=== PATIENT | female | born 1990 | race Caucasian/White ===

== ENCOUNTER 2022-03-31 08:12 | Outpatient (CLI) | payer OTHER, SELFPAY ==
--- NOTE | 2022-03-31 08:15 | CRLHL7_ITS ---
For Patients: As a result of the Century Cures Act, medical imaging exams and procedure reports are released immediately into your electronic medical record. You may view this report before your referring provider. If you have questions, please contact your health care provider. CLINICAL HISTORY: Abdominal pain COMPARISON: none TECHNIQUE: Real time sofia scale imaging and color Doppler analysis was performed of the abdomen. FINDINGS: Sonographic imaging demonstrates normal size and uniform echotexture of the liver. The spleen is of normal size. The pancreas appears normal. The proximal abdominal aorta and IVC appear normal. There is no evidence of ascites. The gallbladder is incompletely distended and there is no evidence of stones within the gallbladder lumen. The gallbladder wall measures 2 mm in thickness. The common bile duct measures 3 mm in size within the gerardo hepatis. The kidneys appear symmetric. The right kidney measures 13.4 cm in length and the left kidney measures 13.0 cm. There is no evidence of a renal calculus or hydronephrosis. IMPRESSION: Mildly contracted gallbladder. No gallstones. Consider gallbladder disease in the appropriate setting. HIDA scan may be useful. Remainder normal. Dictated by Sanjay Dia MD @ 03/31/2022 10:02:03 AM (Electronically Signed)
== END 2022-03-31 08:13 | disposition home or self-care (01) ==
PROVIDERS: PCP Family Medicine; Visit Provider Family Medicine
DX: R10.9 Unspecified abdominal pain (principal)
CPT/HCPCS: 76700

== ENCOUNTER 2022-04-08 07:55 | Outpatient (CLI) | payer OTHER, SELFPAY ==
--- NOTE | 2022-04-08 08:00 | CRLHL7_ITS ---
For Patients: As a result of the 21st Century Cures Act, medical imaging exams and procedure reports are released immediately into your electronic medical record. You may view this report before your referring provider. If you have questions, please contact your health care provider. HISTORY: 31-year-old female. Epigastric pain. TECHNIQUE: 5.22 millicuries of [id number] was injected intravenously. Images of the liver, gallbladder and abdomen were obtained in the anterior projection for 50 minutes. 1.2 mcg CCK was then administered intravenously and imaging was continued for an additional 30 minutes. FINDINGS: There is good uptake of activity by the hepatocytes. There is visualization of the biliary tree, gallbladder and small bowel. In response to CCK administration, there was a normal gallbladder ejection fraction of 64 percent by 30 minutes. IMPRESSION: 1. There is no evidence of acute or chronic cholecystitis. 2. Normal gallbladder ejection fraction of 64 percent. Dictated by Kameron Reardon MD @ 04/08/2022 10:25:26 AM (Electronically Signed)
== END 2022-04-08 07:56 | disposition home or self-care (01) ==
LOC: NM 07:56
PROVIDERS: PCP Family Medicine; Visit Provider Family Medicine
DX: R10.13 Epigastric pain (principal)
CPT/HCPCS: 78227; A9537

== ENCOUNTER 2023-01-29 18:16 | Day surgery (SDC) | payer OTHER, SELFPAY ==
[2023-01-29 18:38] VITALS: BP 107/70; PULSE 94; RESP 18; TEMP 37.1; O2SAT 97; BMI 19.6
--- NOTE | 2023-01-29 19:22 | CRLHL7_ITS ---
For Patients: As a result of the Century Cures Act, medical imaging exams and procedure reports are released immediately into your electronic medical record. You may view this report before your referring provider. If you have questions, please contact your health care provider. INDICATION: Right upper quadrant abdominal pain. The patient is . TECHNIQUE: Right upper quadrant ultrasound. COMPARISON: Complete abdomen ultrasound March 31, 2022. Correlation is made with a HIDA scan April 08, 2022. FINDINGS: Minimal sludge or debris within the gallbladder. No sonographic May`s sign. Normal gallbladder wall of 2.2 mm. Normal extrahepatic common bile duct of 3 mm. The pancreas and liver are within normal limits. No hydronephrosis of the right kidney which measures 14.4 x 3.5 x 6.9 cm. IMPRESSION: Minimal sludge in the gallbladder. The examination is otherwise negative. Dictated by Salbador Mancilla MD @ 01/29/2023 9:32:26 PM (Electronically Signed)
--- NOTE | 2023-01-29 20:30 | ED_ITS ---
HPI - General Adult General Chief complaint: Abdominal Pain Stated complaint: gall bladder pain Time Seen by Provider: 01/29/23 19:55 Source: patient Mode of arrival: ambulatory Limitations: no limitations History of Present Illness HPI narrative: 32-year-old female presenting today with right upper quadrant abdominal pain. Patient states that she has a long history of gallbladder dysfunction. States that it gets worse during her pregnancies but in the last 3 days he it has been worse than usual. She complains of a sharp right upper quadrant pain that feels like a spasm that comes and lingers for several hours. Always worse after she eats so she has eaten very little over the last 3 days. She had chills yesterday but no fevers that she is aware of. She had diarrhea today, no blood. She denies any dysuria, increased frequency or urinary urgency. [place] slightly nauseated. No vomiting. Of note, it appears that the patient had a right upper quadrant abdominal ultrasound in March of 2022 which showed a contracted gallbladder, HIDA scan at that time was normal. Related Data Home Medications Medication Instructions Recorded Confirmed norethindrone (contraceptive) 0.35 0.35 mg PO QDAY 03/29/22 03/29/22 mg tablet Allergies Allergy/AdvReac Type Severity Reaction Status Date / Time Shellfish Allergy Allergy Unknown Swelling Uncoded 03/29/22 10:45 of Lip/Tongue/Throat Review of Systems Status of ROS: Reports: 10 or more systems reviewed and unremarkable except as noted in History and below [facility] Medical History Twin ?O30.009 - Twin , unspecified number of placenta and unspecified number of amniotic sacs, unspecified trimester (ICD-10) Surgical History History of loop electrosurgical excision procedure (LEEP) of cervix (2017) ?Z98.890 - Other specified postprocedural states (ICD-10) Social History Narrative: ([employer] medical affairs manager), 3 kids, non-smoker Smoking Status: Never smoker Non-prescribed substance use: denies use Little interest or pleasure in doing things: not at all Feeling down, depressed, or hopeless: not at all Exam Narrative: Exam Narrative: Well-nourished well-developed patient in no acute distress. Alert and oriented. Answers questions appropriately. Mood and affect are appropriate. Thoughts are goal oriented and rational. No tangential or magical thinking noted. Patient speaks in full sentences without needing to catch her breath. HEENT: Normocephalic atraumatic. Pupils are equally round reactive to light. Extraocular muscles are intact. Conjunctivae are moist without any icterus noted. Moist mucous membranes. Neck is soft without any lymphadenopathy or thyromegaly. No masses are appreciated. Cardiovascular: Heart is regular rate and rhythm S1 and S2 are present without any murmurs. Lungs: Clear to auscultation bilaterally no wheezes rhonchi or rales are appreciated. Patient takes deep breaths without any discomfort. Abdomen: Soft and nondistended with normal bowel sounds. No guarding or rebound. No masses or organomegaly appreciated. She does have right upper quadrant tenderness, negative May sign. Extremities: Bilateral lower extremities are without edema. Skin: Well perfused without any obvious rashes. Const: Vital Signs, click to edit/add: Vital Signs - 24 hr 01/29/23 18:38 Temperature 98.8 F Pulse Rate [Pulse Oximeter] 94 Respiratory Rate 18 Blood Pressure [Ri ght Upper Arm] 107/70 Pulse Oximetry 97 Oxygen Delivery Me thod Room Air Course Course ED Course: IV established and patient was started on normal saline. Labs were drawn: CBC was unremarkable. Normal lactate. Chemistries and LFTs unremarkable. Right upper quadrant ultrasound shows minimal sludge in the gallbladder. Discussed patient with - she recommends cholecystectomy in the morning. Therefore patient will be discharged home at this time. She will be given hydrocodone and she will return in the morning for surgery per Dr. Farmer. Vital Signs Vital signs: Initial Vital Signs Temperature 98.8 F 01/29/23 18:38 Temperature Source Temporal Artery Scan 01/29/23 18:38 Pulse Rate 94 01/29/23 18:38 Respiratory Rate 18 01/29/23 18:38 Blood Pressure 107/70 01/29/23 18:38 Blood Pressure Mean 82 01/29/23 18:38 Blood Pressure Position Supine 01/29/23 18:38 Pulse Oximetry 97 01/29/23 18:38 Oxygen Delivery Method Room Air 01/29/23 18:38 Vital Signs Temperature 98.8 F 01/29/23 18:38 Pulse Rate 94 01/29/23 18:38 Respiratory Rate 18 01/29/23 18:38 Blood Pressure 107/70 01/29/23 18:38 Pulse Oximetry 97 01/29/23 18:38 Oxygen Delivery Method Room Air 01/29/23 18:38 Temperature 98.8 F 01/29/23 18:38 Pulse Rate 94 01/29/23 18:38 Respiratory Rate 18 01/29/23 18:38 Blood Pressure 107/70 01/29/23 18:38 Pulse Oximetry 97 01/29/23 18:38 Oxygen Delivery Method Room Air 01/29/23 18:38 Medical Decision Making MDM Narrative Medical decision making narrative: 32-year-old female with abdominal pain. Pain consistent with biliary colic. Plan per above Medical Records Medical records reviewed: Yes I reviewed the patient's medical records Lab Data Lab results reviewed: Yes I reviewed the patient's lab results Labs: Lab Results 01/29/23 Range/Units 21:02 WBC 8.07 (4.50-11.00) K/uL RBC 4.73 (4.00-5.20) m/uL Hgb 13.5 (12.0-16.0) gm/dL Hct 42.1 (33.0-51.0) % MCV 89 (80-100) fL MCH 29 (26-34) pg MCHC 32 (32-36) gm/dL RDW Coeff of Forrest 12.9 (11.5-15.5) % Plt Count 192 (140-440) K/uL Neut % (Auto) 77.6 H (42.0-72.0) % Lymph % (Auto) 12.5 L (20-44) % [place] % (Auto) 9.4 (0.0-11.0) % Eos % (Auto) 0.2 (0.0-7.0) % Baso % (Auto) 0.2 (0.0-3.0) % Neut # (Auto) 6.30 (1.7-7.0) K/uL Lymph # (Auto) 1.00 (0.90-2.90) K/uL [place] # (Auto) 0.80 (0.00-0.90) K/UL Eos # (Auto) 0.02 (0.00-0.50) K/uL Baso # (Auto) 0.02 (0.00-0.30) K/uL Abs Immat Gran (auto) 0.01 (0.00-0.30) K/uL Imm/Tot Granulo (auto) 0.1 % Sodium 135 (135-149) mmol/L Potassium 3.7 (3.6-5.1) mmol/L Chloride 97 (96-114) mmol/L Carbon Dioxide 28 (20-32) mmol/L Anion Gap 10 (7-15) mEq/L BUN 7 (5-24) mg/dL Creatinine 0.5 (0.5-1.5) mg/dL Estimated Creat Clear 144.58 Estimated GFR 128 ml/min Glucose 95 (60-115) mg/dL Lactate 0.8 (0.5-1.9) mmol/L Calcium 9.0 (8.4-10.6) mg/dL Total Bilirubin 0.4 (0.1-1.5) mg/dL Direct Bilirubin 0.0 (0.0-0.5) mg/dL AST 36 H (12-35) U/L ALT 18 (4-35) U/L Alkaline Phosphatase 59 (40-150) U/L C-Reactive Protein 19.8 H (0.5-1.0) mg/dL Total Protein 8.2 (6.0-8.3) g/dL Albumin 4.5 (3.3-5.0) g/dL Lipase 142 (23-300) U/L Imaging Data US - abdomen: Attestation: I have reviewed the pertinent imaging results. Radiologist's impression: Right upper quadrant ultrasound. COMPARISON: Complete abdomen ultrasound March 31, 2022. Correlation is made with a HIDA scan April 08, 2022. FINDINGS: Minimal sludge or debris within the gallbladder. No sonographic May`s sign. Normal gallbladder wall of 2.2 mm. Normal extrahepatic common bile duct of 3 mm. The pancreas and liver are within normal limits. No hydronephrosis of the right kidney which measures 14.4 x 3.5 x 6.9 cm. IMPRESSION: Minimal sludge in the gallbladder. The examination is otherwise negative. Discharge Plan Discharge Clinical Impression: Abdominal pain, Biliary colic Patient Disposition: Home, Self-Care Condition: Stable Additional Instructions: Take pain medications tonight as needed/as prescribed. Return in the morning per Dr. Farmer's instructions. Pain medications sent to [facility]. Prescriptions: No Action norethindrone (contraceptive) 0.35 mg tablet 0.35 mg PO QDAY Patient Comments: TAKE 1 TABLET BY MOUTH EVERY DAY Follow Up/Referrals: Sanjay Sagluero MD [Primary Care Provider] - Stand Alone Forms: [employer] Info Instructions
[2023-01-29 21:06] LABS: Lactate* 0.8 mmol/L (0.5-1.9)
[2023-01-29] MEDS: 0.9 % SODIUM CHLORIDE 1000 ml 1,000 ML IV (21:12)
[2023-01-29 21:21] LABS: Basophils Absolute Auto 0.02 K/uL (0.00-0.30); Basophils Percent Auto 0.2 % (0.0-3.0); Eosinophils Absolute Auto 0.02 K/uL (0.00-0.50); Eosinophils Percent Auto 0.2 % (0.0-7.0); Hematocrit 42.1 % (33.0-51.0); Hemoglobin* 13.5 gm/dL (12.0-16.0); Immature Granulocytes Abs Auto 0.01 K/uL (0.00-0.30); Immature Granulocytes Pct Auto 0.1 %; Lymphocytes Percent Auto 12.5 % (20-44); Mean Corpuscular HGB Conc 32 gm/dL (32-36); Mean Corpuscular Hemoglobin 29 pg (26-34); Mean Corpuscular Volume 89 fL (80-100); Monocytes Percent Auto 9.4 % (0.0-11.0); Neutrophils Percent Auto 77.6 % (42.0-72.0); Platelet Count* 192 K/uL (140-440); RDW Coefficient of Variation % 12.9 % (11.5-15.5); Red Blood Count 4.73 m/uL (4.00-5.20); White Blood Count* 8.07 K/uL (4.50-11.00)
[2023-01-29 21:22] LABS: Slide Review Reflex No
[2023-01-29 22:04] LABS: Albumin* 4.5 g/dL (3.3-5.0); Chloride* 97 mmol/L (96-114); Sodium* 135 mmol/L (135-149)
[2023-01-29 22:05] LABS: Potassium* 3.7 mmol/L (3.6-5.1)
[2023-01-29 22:07] LABS: Anion Gap 10 mEq/L (7-15); Aspartate Amino Transferase* 36 U/L (12-35); Bilirubin Total* 0.4 mg/dL (0.1-1.5); Carbon Dioxide* 28 mmol/L (20-32); Creatinine* 0.5 mg/dL (0.5-1.5); Est. Creatinine Clearance* 144.58; Estimated Glomerular Filt Rate 128 ml/min
[2023-01-29 22:08] LABS: Alanine Aminotransferase* 18 U/L (4-35); Alkaline Phosphatase* 59 U/L (40-150); Blood Urea Nitrogen* 7 mg/dL (5-24); Glucose* 95 mg/dL (60-115); Lipase* 142 U/L (23-300); Total Protein* 8.2 g/dL (6.0-8.3)
[2023-01-29 22:24] LABS: C Reactive Protein* 19.8 mg/dL (0.5-1.0)
[2023-01-29] MEDS: HYDROCODONE-ACETAMIN 5-325 MG 1 TAB 2 TAB PO (22:39)
[2023-01-29 22:58] LABS: Ur HCG Qualitative* Negative (Negative)
[2023-01-30] VITALS (16 sets, daily range): BP systolic 96–110; BP diastolic 58–71; PULSE 60–78; RESP 12–18; TEMP 36.6–37.2; O2SAT 93–98
--- NOTE | 2023-01-30 09:08 | PM.GSCN ---
History of Present Illness Consult details Date Seen: 01/30/23 Consult date: 01/30/23 Narrative: Patient is an otherwise healthy 32-year-old female who presented to the emergency department last night 3 days of persistent epigastric abdominal pain. She states that she has had pain similar to this on and off for the last 3 years. During her last it was particularly painful. It workup was done during that which showed an abdominal ultrasound with no stones and normal HIDA scan. She does report some associated nausea, no emesis. Has been having some mild diarrhea. [place] alternating hot and cold at home, but has not taken her temperature. She is getting over a cold which she got from her kids. She does report radiation of the pain towards her right side and back. Lying still makes the pain better, moving makes the pain worse. Her abdominal surgical history is positive for a . She does report some nausea with anesthesia. Review of Systems Status of ROS: Reports: 10 or more systems reviewed and unremarkable except as noted in History and below PFSH [facility] Medical History Twin ?O30.009 - Twin , unspecified number of placenta and unspecified number of amniotic sacs, unspecified trimester (ICD-10) Surgical History History of loop electrosurgical excision procedure (LEEP) of cervix (2017) ?Z98.890 - Other specified postprocedural states (ICD-10) Social History Narrative: ([employer] military police officer), 3 kids, non-smoker What is your current living situation?: I presently have a place to live Problems where you live: no known problems Problems where you live details: na In the past 12 months, utilities in danger of being shut off: no In past 12 months, lack of transportation kept you from medical appts, meetings, work, or getting things needed for daily living: no In the past 12 mos, have been you worried that your food would run out before you had money to buy more?: never true In the past 12 mos, the food you bought just didn't last and you didn't have money to buy more?: never true Highest level of school completed/degree received: Master's degree Smoking Status: Never smoker How often do you have a drink containing alcohol: 2-4 times a month Alcohol type: wine How often do you have six or more drinks on one occasion: Never AUDIT-C Alcohol total score: 2 Non-prescribed substance use: denies use Caffeine: Yes How often does anyone, including family, friends and others, physically hurt you: never How often does anyone, including family, friends and others, insult or talk down to you: never How often does anyone, including family, friends and others, threaten you with harm: never How often does anyone, including family, friends and others, scream or curse at you: never Little interest or pleasure in doing things: not at all Feeling down, depressed, or hopeless: not at all service: No Meds Home Medications and Allergies Home Medications Medication Instructions Recorded Confirmed Type norethindrone (contraceptive) 0.35 0.35 mg PO QDAY 03/29/22 03/29/22 History mg tablet Allergies Allergy/AdvReac Type Severity Reaction Status Date / Time Shellfish Allergy Allergy Unknown Swelling Uncoded 03/29/22 10:45 of Lip/Tongue/Throat Exam Narrative: Exam Narrative: General: Alert and oriented, no acute distress Respiratory: Equal breath rise, maintained on room air CV: Well perfused Abdomen: Soft, nondistended, tender to palpation epigastric and right upper quadrant with no guarding or rebound Const: Vital Signs, click to edit/add: Vital Signs - 24 hr 01/29/23 18:38 01/30/23 08:01 Temperature 98.8 F 99 F Pulse Rate [Left P ulse Oximeter] 71 Pulse Rate [Pulse Oximeter] 94 Respiratory Rate 18 16 Blood Pressure [Le ft Arm] 108/71 Blood Pressure [Ri ght Upper Arm] 107/70 Pulse Oximetry 97 98 Oxygen Delivery Me thod Room Air Room Air Results Labs Labs: Abnormal lab results 01/29/23 Range/Units 21:02 Neut % (Auto) 77.6 H (42.0-72.0) % Lymph % (Auto) 12.5 L (20-44) % AST 36 H (12-35) U/L C-Reactive Protein 19.8 H (0.5-1.0) mg/dL Diabetes panel 01/29/23 Range/Units 21:02 Sodium 135 (135-149) mmol/L Potassium 3.7 (3.6-5.1) mmol/L Chloride 97 (96-114) mmol/L Carbon Dioxide 28 (20-32) mmol/L BUN 7 (5-24) mg/dL Creatinine 0.5 (0.5-1.5) mg/dL Glucose 95 (60-115) mg/dL Calcium 9.0 (8.4-10.6) mg/dL AST 36 H (12-35) U/L ALT 18 (4-35) U/L Alkaline Phosphatase 59 (40-150) U/L Total Protein 8.2 (6.0-8.3) g/dL Albumin 4.5 (3.3-5.0) g/dL Calcium panel 01/29/23 Range/Units 21:02 Calcium 9.0 (8.4-10.6) mg/dL Albumin 4.5 (3.3-5.0) g/dL Pituitary panel 01/29/23 Range/Units 21:02 Sodium 135 (135-149) mmol/L Potassium 3.7 (3.6-5.1) mmol/L Chloride 97 (96-114) mmol/L Carbon Dioxide 28 (20-32) mmol/L BUN 7 (5-24) mg/dL Creatinine 0.5 (0.5-1.5) mg/dL Glucose 95 (60-115) mg/dL Calcium 9.0 (8.4-10.6) mg/dL Adrenal panel 01/29/23 Range/Units 21:02 Sodium 135 (135-149) mmol/L Potassium 3.7 (3.6-5.1) mmol/L Chloride 97 (96-114) mmol/L Carbon Dioxide 28 (20-32) mmol/L BUN 7 (5-24) mg/dL Creatinine 0.5 (0.5-1.5) mg/dL Glucose 95 (60-115) mg/dL Calcium 9.0 (8.4-10.6) mg/dL Total Bilirubin 0.4 (0.1-1.5) mg/dL AST 36 H (12-35) U/L ALT 18 (4-35) U/L Alkaline Phosphatase 59 (40-150) U/L Total Protein 8.2 (6.0-8.3) g/dL Albumin 4.5 (3.3-5.0) g/dL All other labs normal. Imaging Abdominal ultrasound report/results: report reviewed and image reviewed Assessment and Plan Assessment and plan (1) Biliary colic: Status: Acute Plan Patient is a 32-year-old female with workup concerning for acute cholecystitis versus chronic cholecystitis. Gastroenteritis is on the differential given the diarrhea, although patient is reporting no sick contacts around her. This also would not fit the picture of on and off abdominal pain over the last 3 years. Different treatment options were reviewed, including watchful waiting versus operative intervention. We discussed the risks of surgery (including but not limited to) the risks of bleeding, infection, injury to other structures in the abdomen including bile duct injury, bile leak and conversion to an open operation. We discussed the possibility that the patient's pain not improve with surgery. We discussed the possibility of permanent post-operative diarrhea that may require medical management. Additionally, the conceivably of complications requiring additional surgery or further hospitalization were also discussed including the risks of CT, respiratory failure, stroke and blood clots. The patient voiced an understanding of our conversation, had the opportunity to ask questions, agreed to accept the risks of surgery and asked that we proceed with surgery. -laparoscopic cholecystectomy
[2023-01-30] MEDS: BUPIVACAINE 0.5% 30 ML INJECTION (09:54)
--- NOTE | 2023-01-30 10:41 | P.GSOP_ITS ---
Operative Note Pre-op diagnosis: Epigastric abdominal pain Post-op diagnosis: 1. Biliary colic 2. Possible early appendicitis Type of Procedure: 1. Laparoscopic cholecystectomy 2. Laparoscopic appendectomy Indications: Patient is a 32-year-old female who presented to the emergency department last day with a 3 day history epigastric abdominal pain. Workup was concerning for possible biliary colic versus acute cholecystitis. Different treatment options were reviewed with the patient, with her deciding to proceed with operative intervention. Risks and benefits of operative intervention were discussed at length with the patient. Risks included but was not limited to: Bleeding, infection, risk of damage to surrounding structures, possible need for additional procedures, possible need to convert to an open operation and postoperative complications such as pneumonia, pulmonary emboli or IA. All questions and concerns were addressed with the patient agreeing to proceed. Procedure Description: After discussing the risks and benefits of the procedure, the patient signed informed consent.? The operative site was marked and the patient was brought to the operating room and placed on the operating table in supine position.? Care was taken to pad the patient's pressure points.?? The patient was then intubated by anesthesia.?? The operative site was then prepped and draped in the usual sterile fashion.? A time-out was then performed. Entrance to the abdomen was gained via a 5 mm Visiport in the left upper quadrant. The abdomen was insufflated and briefly surveyed for signs of injury. There was none. 11 mm umbilical port was placed as well as 2 working ports along the right costal margin. Patient was then placed in reverse Trendelenburg position with the right side up. The gallbladder fundus was distended, but able to be grasped and retracted cephalad. It was noted that there was a significant amount of serous fluid behind the liver and within the pelvis. The infundibulum was grasped. A combination of hook cautery and blunt dissection was used to carefully dissect out the cystic duct and artery until they could clearly be seen entering the gallbladder without any intervening structures. The gallbladder was dissected off the cystic plate to achieve the critical view. Once this was achieved the cystic duct and artery were each clipped with 2 clips proximally and 1 clip distally and transected with the scissors. The gallbladder was then taken off of the liver bed. And removed from the abdomen using an Endo- Catch bag. The gallbladder bed was surveyed for hemostasis, which was excellent. Due to the amount of reactive fluid within the abdomen a brief survey of the abdomen was performed. The appendix was visualized and did appear distended and firm. Procedure I did scrub out and talk to her . I discussed with him a is that the appendix itself was enlarged and mildly firm to palpation, concerning for possible early appendicitis. Different treatment options were reviewed at length with him including doing nothing versus an appendectomy. Risks and benefits of an of appendectomy were discussed at length the , who agreed to proceed with an appendectomy. The 11 mm umbilical port was replaced with a 12 mm port. The appendix was grasped and retracted towards the anterior abdominal wall. A mesenteric window was made and the base of the appendix transected with a 45 mm bowel load via the laparoscopic stapler. The staple line was inspected and appeared hemostatic. An additional 45 mm vascular load was used to transect the mesentery. The staple line was also inspected with hemostasis being excellent. The appendix was then removed through the 12 mm port. All ports were removed under direct visualization. The umbilical port site was closed with an 0 Vicryl [id number] stitch. Additional anesthetic was applied to the port sites. The ports were then closed with 4-0 Monocryl and dressed with Dermabond. Instrument sponge and needle counts were correct at the end of the case. The patient was then woken and transferred to the PACU in stable condition. Sterile dressings were then applied. ? The patient was then woken and transported to the recovery area in stable condition. ? The patient tolerated the procedure well. Findings: Evidence of distended gallbladder. Significant amount of reactive fluid within the abdomen. Appendix also appeared distended and firm. Both gallbladder and appendix were removed. Anesthesia: GETA Surgeon: Kasey Farmer MD Estimated blood loss (mL): 5 Specimen: Appendix and Gallbladder Condition: stable Disposition: PACU Date of procedure: 01/30/23
[2023-01-30] MEDS: fentaNYL 100 MCG/2 ML inj 50 MCG IVP ×2 (11:01→11:12)
[2023-01-30] MEDS: HYDROmorphone 0.5 mg/0.5 ml inj IVP (11:44)
[2023-01-30] MEDS: LACTATED RINGERS 1000 ML 1,000 ML 100 ML IV (12:18)
[2023-01-30] MEDS: KETOROLAC 15 MG/ML inj IVP (12:52)
[2023-01-30] MEDS: HYDROCODONE-ACETAMIN 5-325 MG 1 TAB PO (14:23)
--- NOTE | 2023-01-30 18:18 | PC.NURSE ---
Discharge: Patient pleasant and cooperative. Up to bathroom with SBA from . Vitals stable and WNL. Tolerating regular diet. Lap sites clean and intact. Pain rated 6/10 continuously even with pain medication intervention, block done by [employer] HELPER at bedside. Patient reported relief following block and requested to go home. Dr. Farmer called and updated, okay for discharge. Medications sent to [facility], picked up. Discharged via wheelchair @ 1740.
--- NOTE | 2023-02-21 09:23 | W.ANESCHARGE ---
Anesthesia Charges Start Date/Time Anesthesia Start Date: 01/30/23 Anesthesia Start Time: 09:11 Stop Date/Time Anesthesia Stop Date: 01/30/23 Anesthesia Stop Time: 10:46 Summary Emergency: ELECT[employer]
--- NOTE | 2023-02-21 09:25 | P.NB_ITS ---
Nerve Block Nerve Block Time Seen by Provider: 13:00 Date Seen: 01/30/23 Type of block requested by surgeon for post-operative analgesia: TAP Side: bilateral Time out performed: Yes Verification of patient name: Yes Verification of date of : Yes Name of person performing procedure: jose Continuous monitoring Was continuous monitoring of O2 sat, B/P, metallurgical technician, recorded every 15 minutes?: Yes Procedure Checklist: sterile prep, needles and gloves Ultrasound guided. Images saved: Yes Medications given in 5ml increments after negative aspiration: Marcaine (30 ml total) %: 0.25 mL: 15 Needle gauge: 20 and Exparel (10 ml total) mL: 5 Needle gauge: 20 Patient tolerated procedure well: Yes Block Charges Block Charge (with Pro Fee): TAP Bilateral Use of Ultrasound Machine for Block: Yes- US Guidance/pain block
== END 2023-01-30 17:19 | disposition home or self-care (01) ==
LOC: ED 22:30 → MS OUT 01-30 07:38 → MEDSURG 01-30 08:14 → MS OUT 01-31 16:39 → MEDSURG 01-31 16:41
PROVIDERS: Emergency Provider Family Medicine; PCP Family Medicine; Visit Provider Surgery
PROC: 0FT44ZZ Resection of Gallbladder, Percutaneous Endoscopic Approach (ICD-10-PCS; CPT 47562; principal; 2023-01-30 09:00)
PROC: 0DTJ4ZZ Resection of Appendix, Percutaneous Endoscopic Approach (ICD-10-PCS; CPT 44970; 2023-01-30 09:00)
DX: R10.13 Epigastric pain (principal); R10.11 Right upper quadrant pain; K82.8 Other specified diseases of gallbladder; G89.18 Other acute postprocedural pain
CPT/HCPCS: 47562; 44970; 00790; 36415; 64488; 76705; 76942; 80048; 80076; 81025; 83605; 83690; 85025; 86140; 88304; 99140; 99284; A9270; C9290; J0330; J0665; J1100; J1170; J1200; J1885; J2250; J2405; J2704; J3010; J3475; J3490; J7030; J7120

== ENCOUNTER 2023-02-01 10:59 | Outpatient (CLI) | payer OTHER, SELFPAY ==
[2023-02-01 14:49] LABS: SARS PCR* Negative SARS-CoV-2 (Negative); Strep A DNA Probe* NOT DETECTED (Not Detectd)
== END 2023-02-01 11:00 | disposition home or self-care (01) ==
PROVIDERS: PCP Family Medicine; Visit Provider Nurse Practitioner Family
DX: R05.9 Cough, unspecified (principal); J02.9 Acute pharyngitis, unspecified
CPT/HCPCS: 85025; 87635; 87651

== ENCOUNTER 2023-03-15 14:32 | Outpatient (CLI) | payer OTHER, SELFPAY | END 2023-03-15 14:33 | disposition home or self-care (01) | LOC: NFLDREF 03-16 06:55 | PROVIDERS: PCP Family Medicine; Referring Provider Family Medicine; Visit Provider Registered Nurse | DX: Z01.419 Encounter for gynecological examination (general) (routine) without abnormal findings (principal); Z13.6 Encounter for screening for cardiovascular disorders | CPT/HCPCS: 80061 ==

== ENCOUNTER 2023-05-24 14:00 | Outpatient (CLI) | payer OTHER, SELFPAY ==
--- NOTE | 2023-05-24 14:00 | CRLHL7_ITS ---
For Patients: As a result of the Cures Act, medical imaging exams and procedure reports are released immediately into your electronic medical record. You may view this report before your referring provider. If you have questions, please contact your health care provider. INDICATION: First trimester scan, establish dates. COMPARISON: None. TECHNIQUE: Real-time sofia-scale imaging of the pelvis was performed. FINDINGS: Sonographic imaging demonstrates a single living intrauterine gestation. The embryo demonstrates a regular cardiac rate measuring 178 beats per minute. The embryo`s crown-rump length measurement of 1.8 cm corresponds to a gestational age of 8 weeks 2 days with a sonographic due date of 01/01/2024. There is a normal-appearing yolk sac. There are no gross abnormalities noted within the embryo at this early state of development. The gestational sac has a normal appearance. There is no evidence of a perigestational hemorrhage. The amount of fluid within the sac appears appropriate for gestational age. The cervix is closed. The myometrium appears normal. Left ovary not visualized. Corpus luteal cyst right ovary. There are no suspicious fluid collections noted in the cul-de-sac. IMPRESSION: Single living intrauterine with sonographic gestational age 8 weeks 2 days and sonographic due date 01/01/2024. Dictated by Sanjay Dia MD @ 05/26/2023 10:39:59 AM (Electronically Signed)
== END 2023-05-24 14:01 | disposition home or self-care (01) ==
LOC: US 14:01
PROVIDERS: PCP Family Medicine; Visit Provider Advanced Practice Midwife
DX: Z34.91 Encounter for supervision of normal pregnancy, unspecified, first trimester (principal); Z3A.08 8 weeks gestation of pregnancy
CPT/HCPCS: 76817

== ENCOUNTER 2023-05-24 15:46 | Outpatient (CLI) | payer OTHER, SELFPAY ==
--- OUTSIDE RECORDS SUMMARY | 2023-05-25 07:05 | XMS_ITS | Clinical Summary ---
Author Name Unknown Organization [facility] Address [address] [facility] [place] [address] Care Team Providers Care Family Law Attorney Name Role Phone No Ref-Primary, Physician Primary Care Provider Allergies Active Allergy Reactions Criticality Noted Date Comments Shellfish-Derived Products Anaphylaxis High 04/29/19 21 Medications Medication Sig Dispensed Refills Start Date End Date Status Vit-Fe Fumarate-FA (PNV PLUS MULTIVITAMIN) 27-1 MG TABS per tablet Take 1 tablet by mouth daily 0 Active omeprazole (PRILOSEC OTC) 20 MG EC tablet Take 20 mg by mouth daily 0 Active Active Problems Problem Noted Date Diagnosed Date Indication for care in labor or delivery 022 Indication for care in labor and delivery, antep artum 12/08/2021 delivery delivered 05/02/2020 premature rupture of membranes (PPROM) with unknown onset of labor 04/29/2020 Twin gestation in third trimester 04/29/2020 Immunizations Name Administration Dates Next Due COVID-19 MONOVALENT 12+ (Pfizer) 09/11/2020,050 10/2020 Social History Tobacco Use Types Packs/Day Years Used Date Smoking Tobacco: Never Smokeless Tobacco: Never Alcohol Use Standard Drinks/Week Comments Not Currently 0 (1 standard drink = 0.6 oz pur e alcohol) [place] Depression Scale Answer Date Recorded Last EPDS Total Score Not on file 01/14/2022 The thought of harming myself has occurred to me . Never 01/14/2022 Adolescent Education Answer Date Record ed Getting School Help Needed Not on file 01/15 Sex and Gender Information Value Date Recorded Sex Assigned at Female 07/08/2021 7:55 AM CDT Gender Identity Female 07/08/2021 7:55 AM CDT Sexual Orientation Not on file Last Filed Vital Signs Vital Sign Reading Time Taken Comments Blood Pressure 109/80 01/15/2022 8:26 AM CDT Pulse 70 01/15/2022 8:26 AM CDT Temperature 36.3 ??C (97.3 ??F) 01/15/2022 8:26 AM CD T Respiratory Rate 16 01/15/2022 8:26 AM CDT Oxygen Saturation 98% 01/14/2022 6:30 PM CDT Inhaled Oxygen Concentration - - Weight 70.3 kg (155 lb) 01/13/2022 2:31 PM CDT Height 170.2 cm (5' 7) 01/13/2022 2:31 PM CDT Body Mass Index 24.28 01/13/2022 2:31 PM CDT Plan of Treatment Health Maintenance Due Date Last Done Comments ADVANCE CARE PLANNING 1990 ANNUAL REVIEW OF HM ORDERS 1990 HEPATITIS B IMMUNIZATION (1 of 3 - 3-dose series) 1990 YEARLY PREVENTIVE VISIT 1990 HEPATITIS C SCREENING 2008 PAP 09/08/2011 COVID-19 Vaccine (2022- season) 2022 09/11/2020, 08/22/2020 INFLUENZA VACCINE (#1) 2022 01/25/2020, 2008 PHQ-2 (once per calendar year) 2023 DTAP/TDAP/TD IMMUNIZATION (5 - Td or Tdap) 04/22/2030 04/22/2020, 11/06/2018, 11/25/2008, Additional history exists MENINGITIS IMMUNIZATION Aged Out 10/13/2006 No l onger eligible based on patient's age to complete this topic HPV IMMUNIZATION Completed 05/15/2007, , 10/13/2006 HIV SCREENING Completed 07/07/2021 IPV IMMUNIZATION Aged Out No longer e ligible based on patient's age to complete this topic Pneumococcal Vaccine: Pediatrics (0 to 5 Years) and At-Risk Patients (6 to 64 Years) Aged Out No longer eligible based on patient's age to complete this topic RSV MONOCLONAL ANTIBODY Aged Out No l onger eligible based on patient's age to complete this topic Advance Directives For more information, please contact: [phone] Latest Code Status on File Code Status Date Activated Date Inactivated Comments Full Code 01/13/2022 2:49 PM 01/14/2022 5:44 AM All b asic and advanced life-sustaining interventions are performed as appropriate Question Answer Comments Code status determined by: Discussion with patient/ legal decision maker Code Status History Code Status Date Activated Date Inactivated Comments Full Code 05/03/2020 1:41 PM 05/05/2020 2:51 PM All b asic and advanced life-sustaining interventions are performed as appropriate Question Answer Comments Code status determined by: Discussion with patient/ legal decision maker Full Code 04/29/2020 6:05 PM 05/02/2020 5:07 PM All b asic and advanced life-sustaining interventions are performed as appropriate Question Answer Comments Code status determined by: Other (please document) Care Teams Family Law Attorney Relationship Specialty Start Date End Date No Ref-Primary, Physician PCP - General 01/14/22
--- OUTSIDE RECORDS SUMMARY | 2023-05-25 07:05 | XMS_ITS | Referral Summary ---
Author Name Unknown Organization [facility] Address [address] [facility] [place] [address] Care Team Providers Care Film Spooler Name Role Phone No Ref-Primary, Physician Primary [...] drink = 0.6 oz pur e alcohol) [place] Depression Scale Answer Date Recorded Last EPDS [...] 01/13/2022 2:31 PM CDT Plan of Treatment Not on file Advance Directives For more information, please contact: [phone] Latest Code Status on File Code Status [...] determined by: Other (please document) Care Teams Film Spooler Relationship Specialty Start Date End Date No Ref-Primary, Physician PCP - General 01/14/22
--- OUTSIDE RECORDS SUMMARY | 2023-05-25 07:05 | XMS_ITS | Clinical Summary ---
Author Name Unknown Organization [facility] [place], [place] [address] Care Team Providers Care Bench Grinder Name Role Phone Ltd, [facility] Primary Care Provider Unava ilable Allergies No known active allergies Medications No known medications Encounters Date Type Department Care Team Description 03/16/2023 Lab Requisition [facility] [phone] Ibeth Johnston, VALERIA from Last 3 Months Social History Tobacco Use Types Packs/Day Years Used Date Smoking Tobacco: Never Assessed Sex and Gender Information Value Date Recorded Sex Assigned at Not on file Gender Identity Not on file Sexual Orientation Not on file Last Filed Vital Signs Vital Sign Reading Time Taken Comments Blood Pressure 131/86 05/04/2008 5:37 PM [employer] WEAVER Pulse 63 05/04/2008 5:37 PM [employer] WEAVER Temperature 36.8 ??C (98.2 ??F) 05/04/2008 5:37 PM CS T Respiratory Rate 16 05/04/2008 5:37 PM TIRE CORD WEAVER Oxygen Saturation 100% 05/04/2008 5:37 PM TI[employer] C[employer] WEAVER Inhaled Oxygen Concentration - - Weight 61.2 kg (135 lb) 05/04/2008 5:37 PM TIRE CORD WEAVER Height 172.7 cm (5' 8) 05/04/2008 5:37 PM TIRE CORD WEAVER Body Mass Index 20.53 05/04/2008 5:37 PM TIRE CORD WEAVER Plan of Treatment Health Maintenance Due Date Last Done Comments Tdap 2001 Depression screening for age 12+ 2002 HIV for age 15-65 2005 BMI (ht and wt on same day) for age 18+ 2008 Hepatitis C screening for ag e 18-79 2008 Tetanus booster 2010 COVID-19 vaccine series ( season) 2022 09/11/2020, 08/22/2020 Influenza for age 9-49 12/17/2022 Pap test for age 21-65 03/15/2026 3, 03/15/2023 Pneumococcal series for age 6-64 Aged Out No longer eligible b ased on patient's age to complete this topic Procedures Procedure Name Priority Date/Time Associated Diagnosis Comments LAB TRACKING EVENT Routine 03/15/2023 2: 15 PM [employer] WE[employer]ER GAME OPERATOR THIN PREP PAP SCREEN IMAGED Routine 03/15/2023 2:15 PM [employer] WE[employer]ER HPV THIN PREP Routine 03/15/2023 2:15 PM TIRE C[employer] WEAVER from Last 3 Months Results * LAB TRACKING EVENT (03/15/2023 2:15 PM TIRE CORD WEAVER) Other (Other) Client Collect / Unknown 03/15/2023 2:15 PM TI[employer] C[employer] WEAVER 03/16/2023 4:28 PM [employer] WE[employer]ER Ibeth Johnston NP LAB BILL ONLY [facility] [address] [place] [address], * GAME OPERATOR THIN PREP PAP SCREEN IMAGED (03/15/2023 2:15 PM TIRE CORD WEAVER) Case Report Gynecologic Cytology Report ? Case: [id number] ? Authorizing Provider: ??Ibeth Johnston, VALERIA ?? Collected: ? 03/15/2023 1415 ? Ordering Location: ? [facility] ?Received: ?03/17/2023 1255 ? First Screen: ?Baccam, Minie ? Specimen: ?GAME OPERATOR ThinPrep Vial Screening, Cervical ? 03/28/2023 2:07 PM [facility] INTERPRETATION/ RESULT NEGATIVE FOR INTRAEPITHELIAL LESION OR MALIGNANCY (NIL) (none) 03/28/2023 2:07 PM [facility] IMEN ADEQUACY Satisfactory for evaluation Endocervical component present 03/28/2023 2:07 PM [facility] HPV REQUEST HPV and PAP 03/28/2023 2:07 PM [facility] Date of LMP 03/12/2023 03/28/2023 2:07 PM [facility] Last Pap Date 11/06/2018 03/28/2023 2:07 PM [facility] Last Pap Result NIL 2:07 PM [facility] Erving Bx Done Today No 03/28/2023 2:07 PM [facility] Additional Information 03/28/2023 2:07 PM [facility] Comment: Interpreted at [facility] - [address], [place] [address] Automated Review Successful 03/28/2023 2:07 PM [facility] Comment:Specimen processed s uccessfully by automated telecommunications technician device, ThinPrep Imaging System, [employer] ANCILLARY TESTING GAME OPERATOR HPV Ordered, Please see separate report 03/28/2023 2:07 PM [facility] Note The pap test is a screening technique, not a diagnostic procedure. It is used primarily to screen for squamous cancers and precursor lesions. Published studies have shown that it is subject to both false negative and false positive results. The pap test should not be used as the sole means to diagnose or exclude pre-malignant and malignant lesions. 03/28/2023 2:07 PM TIRE CORD WEAVER [facility] Other (Cervical) 03/15/2023 2:15 PM TIRE CORD WEAVER 03/17/2023 12:55 PM TI[employer] C[employer] WEAVER Ibeth Johnston NP PATHOLOGY/CYTOLOG Y Performing Organization Address [facility] Co de Phone Number [facility] [address] [place] [id number], * HPV HIGH RISK (03/15/2023 2:15 PM TIRE CORD WEAVER) TYPE 16 Negative Negative 03/22/2023 5:06 PM TIRE CORD WEAVER [facility] TYPE 18 Negative Negative 03/22/2023 5:06 PM TIRE CORD WEAVER [facility] OTHER HIGH RISK TYPES Negative Negative 03/22/2023 5:06 PM TIRE CORD WEAVER [facility] Other (Cervical) 03/15/2023 2:15 PM TIRE CORD WEAVER 03/17/2023 12:55 PM TIRE CORD WEAVER Narrative [facility] - 03/22/2023 5:06 PM TIRE CORD WEAVER HPV types 16, 18, 31, 33, 35, 39, 45, 51, 52, 56, 58, 59, 66 and 68 DNA were undetectable or below the pre-set threshold. Methodology: Ирина Irais 4800 HPV Test Ibeth Johnston NP MICROBIOLOGY Performing Organization Address [facility] Co de Phone Number [facility] [address] [address], from Last 3 Months Care Teams Bench Grinder Relationship Specialty Start Date End Date Ltd, [facility] PCP - General 03/29/07
== END 2023-05-24 15:47 | disposition home or self-care (01) ==
LOC: NFLDREF 05-25 07:03
PROVIDERS: PCP Family Medicine; Referring Provider Family Medicine; Visit Provider Advanced Practice Midwife
DX: Z34.91 Encounter for supervision of normal pregnancy, unspecified, first trimester (principal); Q24.9 Congenital malformation of heart, unspecified
CPT/HCPCS: 86592; 86703; 86704; 86706; 86762; 86787; 86803; 86850; 86900; 86901; 87086; 87340